=== PATIENT | male | born 1970 | race Caucasian/White ===

== ENCOUNTER 2017-06-13 16:01 | Emergency (ER) | payer OTHER ==
[~2017-06-13] VITALS: Ht 167.6 cm; Wt 113.6 kg
[2017-06-13 16:05] VITALS: TEMP 98
[2017-06-13] MEDS ORDERED: AMBIEN 5MG TABLE5 MG PO (16:35)
[2017-06-13] MEDS ORDERED: GLUCOPHAGE1000 MG PO (16:35)
[2017-06-13] MEDS ORDERED: CLEOCIN HCL300 MG PO (17:34)
[2017-06-13 17:49] VITALS: BP 128/82; PULSE 86
== END 2017-06-13 17:54 | disposition home or self-care (01) ==
LOC: COL.ER 16:01
DX: L03.818 Cellulitis of other sites (principal); E11.9 Type 2 diabetes mellitus without complications; Z79.4 Long term (current) use of insulin; Z79.84 Long term (current) use of oral hypoglycemic drugs